=== PATIENT | male | born 1960 | race Caucasian/White ===

== ENCOUNTER 2017-10-19 23:31 | Emergency (ER) | payer BC ==
[2017-10-19] MEDS ORDERED: Ketorolac 10 MG Tab PO ONE (23:56)
--- NOTE | 2017-10-20 00:12 | EDM.PDOC ---
ED HPI GENERAL MEDICAL PROBLEM - General Chief Complaint: ENT Problem Stated Complaint: throat and neck pain Time Seen by Provider: 10/19/17 23:48 Source of Information: Reports: Patient History Limitations: Reports: No Limitations - History of Present Illness INITIAL COMMENTS - FREE TEXT/NARRATIVE: Patient concerned due to developing left sided neck pain that started when he tried to take his supplements this evening around 7pm. He says that he "swallowed wrong" and felt immediate pain in left side of neck. This pain has been slowly worsening in severity. It worsens when he turns his head to the left and also when he swallows. No swelling. No difficulties breathing. No history of similar problem in past. No other complaints. Throat Pain Score (Numeric/FACES): 2 - Related Data Allergies Allergy/AdvReac Type Severity Reaction Status Date / Time No Known Allergies Allergy Verified 10/19/17 23:32 Home Meds: Home Meds Ca Carb & Gluc/Mag Ox & Gluc [Calcium Magnesium Caplet] 1 tab PO DAILY 04/25/14 [History] Fluticasone Propionate [Flonase] 2 sprays NS DAILY PRN 04/25/14 [History] Glucosamine/Chondroitin Sulf A [Glucosamine Chondroitin Cap] 1 cap PO DAILY [History] Multivitamin with Minerals [Multiple Vitamin] 1 tab PO DAILY 04/25/14 [History] Berwind-3 Fatty Acids/Fish Oil [Fish Oil 1,000 mg Softgel] 1 cap PO DAILY [History] Triamcinolone Acetonide [Kenalog 0.1% Crm] 1 applic TOP BID PRN 04/25/14 [ History] Aspirin [Lite Coat Aspirin] 325 mg PO DAILY 04/28/14 [History] EPINEPHrine [Epipen] 0.3 mg IM ASDIRECTED PRN 10/19/17 [History] Ibuprofen [Advil] 600 mg PO Q6H PRN 10/19/17 [History] Levothyroxine [Synthroid] 50 mcg PO ACBREAKFAST 10/19/17 [History] Non-Formulary Medication [NF Drug] 1 injection INJECT WEEKLY 10/19/17 [History] Past Medical History HEENT History: Reports: Allergic Rhinitis, Impaired Vision Cardiovascular History: Reports: High Cholesterol, Other (See Below) Other Cardiovascular History: NAFLD Psychiatric History: Reports: None Endocrine/Metabolic History: Reports: Hypothyroidism - Past Surgical History HEENT Surgical History: Reports: LASIK, Other (See Below) Other HEENT Surgeries/Procedures: bridge, deviated septum repair Musculoskeletal Surgical History: Reports: Other (See Below) Other Musculoskeletal Surgeries/Procedures:: righ labrum repair Social & Family History - Tobacco Use Smoking Status *Q: Never Smoker - Alcohol Use Days Per Week of Alcohol Use: 0 - Recreational Drug Use Recreational Drug Use: No ED ROS ENT - Review of Systems Review Of Systems: ROS reveals no pertinent complaints other than HPI. ED EXAM, ENT - Physical Exam Exam: See Below Exam Limited By: No Limitations General Appearance: Alert, WD/WN, Anxious Eye Exam: Bilateral Eye: EOMI, PERRL Ears: Normal External Exam Nose: Normal Inspection Mouth/Throat: Normal Inspection, Normal Gums, Normal Lips, Normal Oropharynx, Normal Teeth Head: Atraumatic, Normocephalic Neck: Supple, Full Range of Motion, Tender Lateral (Left side, near anterior portion of sternoclidomastoid as in nears its insertion point distally. Palpation reproduces patient's complaint. Slight increase in muscle tension noted. ) Respiratory/Chest: No Respiratory Distress Neurological: Alert, Oriented, Normal Cognition, Normal Gait Psychiatric: Anxious Skin: Warm, Dry, Intact, Normal Color Course - Vital Signs Last Recorded V/S: Last Vital Signs Temp 36.2 C 10/19/17 23:32 Pulse 63 10/19/17 23:44 Resp 16 10/19/17 23:32 BP 149/98 H 10/19/17 23:44 Pulse Ox 98 10/19/17 23:32 - Orders/Labs/Meds Meds: Medications Discontinued Medications Generic Name Dose Route Start Last Admin Trade Name Alirezaq PRN Reason Stop Dose Admin Ketorolac Tromethamine 10 mg 10/19/17 23:56 Toradol PO 10/19/17 23:57 ONETIME ONE - Re-Assessments/Exams Free Text/Narrative Re-Assessment/Exam: 10/20/17 00:29 Highly suspect muscle strain/spasm involving sternoclidomastoid given history and exam. Patient extraordinarily anxious. Very high BP when arrived. He was worried that he had a spontaneous fracture of hyoid bone. Reassurance was given to patient that hyoid fractures are extraordinarily rare, and are usually a result of severe trauma, such as with strangulation. Additionally, no tenderness noted around anterior neck cartilage/structures. Patient appeared somewhat reassured. BP improved, but he continued to be anxious , and was especially concerned that the pain had increased since the initial incident. Additional reassurance given, as it takes time/hours for pain from muscle strain to reach it's peak. Conservative treatment planned at this time. Rest/ice/Toradol/Valium recommended to help with pain and spasm. Toradol and Valium given from ER stock. He is to follow up if he has sudden worsening problems, otherwise should follow up with Bi Vaughn at clinic as needed if pain is not improving within 24-48 hours. Patient is agreeable with plan. Had no further questions. Less anxious at time of discharge. Departure - Departure Time of Disposition: 00:07 Disposition: Home, Self-Care 01 Condition: Good Clinical Impression: Sternocleidomastoid muscle tenderness, Anxiety Neck muscle strain Qualifiers: Encounter type: initial encounter Qualified Code(s): S16.1XXA - Strain of muscle, fascia and tendon at neck level, initial encounter - Discharge Information Instructions: Ketorolac tablets, Diazepam tablets Referrals: Bi Calles, [employer] [Primary Care Provider] - Forms: ED Department Discharge, ED Return to Work/School Form Additional Instructions: Take 1/2 of a Valium tablet tonight before sleep (avoid trying a full dose the first time around). This will help the spasm and will aid in sleep. You may take the Valium once every 8 hours as needed. Avoid driving if you take the Valium in daytime. Take the Toradol tablet once every 6 hours for the next 24-48 hours for pain and inflammation. Do not take other NSAIDS such as Ibuprofen or Aleve while taking Toradol. OK to apply ice packs to sore area for 10-15 min every few hours for the first few days. Gentle stretching and range of motion activity encouraged. Follow up as needed in ER for sudden problems. Otherwise follow up with Bi Vaughn at clinic if symptoms do not start to improve within a day or two.
== END 2017-10-20 00:25 | disposition home or self-care (01) ==
LOC: LL.ED 23:31
DX: S16.1XXA Strain of muscle, fascia and tendon at neck level, initial encounter (principal); F41.9 Anxiety disorder, unspecified; E78.00 Pure hypercholesterolemia, unspecified; E03.9 Hypothyroidism, unspecified; Z79.82 Long term (current) use of aspirin; Z79.899 Other long term (current) drug therapy; X58.XXXA Exposure to other specified factors, initial encounter
CPT/HCPCS: 99283

== ENCOUNTER 2017-12-04 09:48 | Day surgery (SDC) | payer BC ==
[~2017-12-04 09:48] MED LIST: Lactated Ringers 1,000 ML IV SCH; Sodium Chloride 0.9% 10 ML Syringe FLUSH PRN
[2017-12-04] MEDS ORDERED: Midazolam 1 MG/ML 2 ML SDV ONE ×2 (11:42→11:49)
[2017-12-04] MEDS ORDERED: fentaNYL 100 MCG/2 ML SDV ONE ×2 (11:42→11:49)
[2017-12-04] MEDS ORDERED: Propofol 200 MG/20 ML SDV ONE ×2 (11:42→11:49)
--- NOTE | 2017-12-04 11:53 | PCM.PN ---
- General Info Date of Service: 12/04/17 - Review of Systems Systems Review Comment:: 57-year-old male with a personal history of colon polyps and family history of colon cancer (father) here for colonoscopy. He is medically stable to proceed with no significant recent changes in his health status. His history and physical is reviewed and no changes are noted. I have discussed the proposed colonoscopy with the patient. He understands indications and risks and agrees to proceed. - Patient Data Vitals - Most Recent: Last Vital Signs Temp 98.2 F 12/04/17 10:18 Pulse 69 12/04/17 10:18 Resp 18 12/04/17 10:18 BP 131/84 12/04/17 10:18 Pulse Ox 95 12/04/17 10:18 Weight - Most Recent: 88.451 kg Med Orders - Current: Current Medications Lactated Ringer's (Ringers, Lactated) 1,000 mls @ 125 mls/hr IV ASDIRECTED EMILIE Last Admin: 12/04/17 10:48 Dose: 125 mls/hr Sodium Chloride (Saline Flush) 10 ml FLUSH ASDIRECTED PRN PRN Reason: Keep Vein Open Discontinued Medications Fentanyl (Sublimaze) Confirm Administered Dose 100 mcg .ROUTE .STK-MED ONE Stop: 12/04/17 11:43 Midazolam HCl (Versed 1 Mg/Ml) Confirm Administered Dose 2 mg .ROUTE .STK-MED ONE Stop: 12/04/17 11:43 Propofol (Diprivan 20 Ml) Confirm Administered Dose 400 mg .ROUTE .STK-MED ONE Stop: 12/04/17 11:43 - Problem List Review Problem List Initiated/Reviewed/Updated: Yes - Assessment Assessment:: Personal history of colon polyps Family history of colon cancer - Plan Plan:: Colonoscopy
--- NOTE | 2017-12-04 12:38 | PCM.OPNOTE ---
- General Post-Op/Procedure Note Date of Surgery/Procedure: 12/04/17 Operative Procedure(s): Colonoscopy with Polypectomy Findings: Small Colon Polyps Moderate Sigmoid Diverticulosis Pre Op Diagnosis: History of Colon Polyps. Family History of Colon Cancer Post-Op Diagnosis: Colon Polyps. Diverticulosis Anesthesia Technique: MAC Primary Surgeon: Carlos Alberto Sharp Pathology: Colon Polyps Output, Urine Amount: 0 EBL in mLs: 0 Complications: None Condition: Good Free Text/Narrative:: Intake & Output 12/03/17 12/04/17 12/04/17 22:59 06:59 14:59 Intake Total 900 Balance 900
--- NOTE | 2017-12-05 08:01 | OR ---
Date of Procedure: 12/04/2017 PREOPERATIVE DIAGNOSES: 1. History of colon polyps. 2. Family history of colon cancer. POSTOPERATIVE DIAGNOSES: 1. Colon polyps. 2. Diverticulosis. OPERATION PERFORMED: Colonoscopy with polypectomy. INDICATIONS FOR SURGERY: This 57-year-old male has a known history of colon polyps and also his father had colon cancer. He comes for surveillance colonoscopy. FINDINGS: Small polyps were noted during the exam. There was a cluster of two polyps at the hepatic flexure. These were sessile in configuration and each 5 to 6 mm in size. There was a 4 mm semi-pedunculated polyp in the transverse colon, and a 7 mm semi-pedunculated polyp in the rectum, 10 cm from the anal verge. The patient also has a moderate degree of sigmoid diverticulosis, which does not appear to be complicated. PROCEDURE IN DETAIL: The patient was taken to the operating room. He was given intravenous sedation and with him in the left lateral decubitus position, digital rectal exam was performed showing no rectal masses. The Olympus colonoscope was inserted into the rectum. Retroflexed examination of the rectal canal was performed. The scope was then carefully advanced under direct visualization through the entire length of the colon until the cecum was reached. Cecal acquisition was confirmed by noting the normal internal cecal anatomy including the appendiceal orifice and ileocecal valve. The light was also noted to transilluminate the abdominal wall in the right lower quadrant. After examining the cecum, the scope was slowly withdrawn sequentially re- examining the colonic segments. During withdrawal of the scope, the above- described polyps were identified and each of these are in turn removed with cautery snare. They were retrieved and will be submitted as pathologic specimens. There was no sign of bleeding or any other complication at the polypectomy sites. The procedure was tolerated well and after that the examination had been completed, the scope was removed and the patient was taken from the operating room in satisfactory condition. ESTIMATED BLOOD LOSS: Zero. COMPLICATIONS: None. PROGNOSIS: Good. JESSI Sharp MD /[id number]
== END 2017-12-04 13:39 | disposition home or self-care (01) ==
LOC: LL.SDS 09:48
PROVIDERS: ATTEND Surgery
DX: Z12.11 Encounter for screening for malignant neoplasm of colon (principal); D12.3 Benign neoplasm of transverse colon; D12.8 Benign neoplasm of rectum; K57.30 Diverticulosis of large intestine without perforation or abscess without bleeding; E03.9 Hypothyroidism, unspecified; E78.00 Pure hypercholesterolemia, unspecified; G47.30 Sleep apnea, unspecified; Z86.010 Personal history of colon polyps; Z80.0 Family history of malignant neoplasm of digestive organs; Z91.09 Other allergy status, other than to drugs and biological substances; Z79.82 Long term (current) use of aspirin; Z79.899 Other long term (current) drug therapy; Z72.0 Tobacco use
CPT/HCPCS: 45385; J2250; J2704; J3010; J7120

== ENCOUNTER 2022-05-23 11:05 | Day surgery (SDC) | payer BC ==
[~2022-05-23 11:05] MED LIST changes: +Midazolam 1 MG/ML 2 ML SDV ONE; +Propofol 200 MG/20 ML SDV ONE
== END 2022-05-23 13:30 | disposition home or self-care (01) ==
LOC: LL.SDS 11:05
PROVIDERS: ATTEND Surgery
DX: K63.5 Polyp of colon (principal); K57.30 Diverticulosis of large intestine without perforation or abscess without bleeding; M06.9 Rheumatoid arthritis, unspecified; E78.5 Hyperlipidemia, unspecified; Z79.899 Other long term (current) drug therapy; Z88.8 Allergy status to other drugs, medicaments and biological substances; Z98.890 Other specified postprocedural states
CPT/HCPCS: 00812; J2250; J2704; J7120

== ENCOUNTER 2025-02-17 08:41 | Day surgery (SDC) | payer MEDICARE, BC ==
[~2025-02-17 08:41] MED LIST changes: -Lactated Ringers 1,000 ML IV SCH
[2025-02-17] MEDS: Lactated Ringers 1,000 ML IV SCH (09:17)
[2025-02-17] MEDS ORDERED: Glycopyrrolate 0.2 MG/ML SDV IVPUSH ONE (09:50)
== END 2025-02-17 10:54 | disposition home or self-care (01) ==
LOC: LL.SDS 08:41
PROVIDERS: ATTEND Surgery
DX: K21.00 Gastro-esophageal reflux disease with esophagitis, without bleeding (principal); K29.50 Unspecified chronic gastritis without bleeding; K44.9 Diaphragmatic hernia without obstruction or gangrene; K22.89 Other specified disease of esophagus; Z79.899 Other long term (current) drug therapy; Z88.8 Allergy status to other drugs, medicaments and biological substances
CPT/HCPCS: J1596; J2250; J2704; J7120